=== PATIENT | female | born 1955 | race Caucasian/White ===

== ENCOUNTER 2017-09-17 21:37 | Emergency (ER) | payer OTHER ==
[~2017-09-17] VITALS: Ht 160 cm; Wt 58.1 kg
[~2017-09-17 21:37] MED LIST: B COMPLEX PO; MULTI VITAMIN PO; Z.0.ACIPHEX20 MG PO; Z.0.ADDERALL XR 3030 PO; Z.0.ALAGESIC CAPSU1 PO; Z.0.SYNTHROID125 MCG PO; Z.1.DIOVAN HCT 3201 PO; Z.1.FLUOXETINE HCL20 PO
[2017-09-17] MEDS ORDERED: KETOROLAC TROMETHAMINE 30 MG/ML VIAL IV ONE (22:00)
[2017-09-17] MEDS ORDERED: SODIUM CHLORIDE 0.9% 1000ML 1,000 ML ONE (22:15)
[2017-09-17] MEDS ORDERED: PROMETHAZINE HCL (IM) 25 MG/ML VIAL IM ONE (22:15)
[2017-09-17] MEDS ORDERED: KETOROLAC TROMETHAMINE 30 MG/ML VIAL IV STA (23:10)
[2017-09-18] MEDS ORDERED: DIPHENHYDRAMINE HCL INJ 50 MG/ML VIAL IV ONE (00:15)
[2017-09-18] MEDS ORDERED: MORPHINE SULFATE 5 MG/ML VIAL IV ONE (00:15)
[2017-09-18] MEDS ORDERED: KETOROLAC TROME10 MG PO (00:26)
[2017-09-18] MEDS ORDERED: ULTRAM50 MG PO (00:26)
[2017-09-18] MEDS ORDERED: PROMETHAZINE HC25 M1 PO (00:26)
[2017-09-18] MEDS ORDERED: FLOMAX0.4 MG PO (00:30)
[2017-09-18 00:43] VITALS: BP 120/70
== END 2017-09-18 01:53 | disposition home or self-care (01) ==
LOC: FSED 21:37
DX: R30.0 Dysuria (principal); R31.9 Hematuria, unspecified; R11.2 Nausea with vomiting, unspecified; M54.5 Low back pain; N20.1 Calculus of ureter; Z85.850 Personal history of malignant neoplasm of thyroid; K21.9 Gastro-esophageal reflux disease without esophagitis; F17.210 Nicotine dependence, cigarettes, uncomplicated
CPT/HCPCS: 74176; 80053; 80307; 81003; 85025; 96374; 96375; 99284; J2550; J7030

== ENCOUNTER → 2020-06-22 | Day surgery (SDC) | payer SELFPAY ==
[~2020-06-22] MED LIST changes: +ALBUTEROL0.63 MG/3 NEB; +BUPROPION XL150 MG PO; +CBD GUMMIES PO; +CLONAZEPAM1 MG PO; +ENDOMETRIN100 MG PO; +FENTANYL CITRATE/PF 100MCG/2 ML INJ ONE; +FLOMAX0.4 MG PO; +KETOROLAC TROME10 MG PO; +MELATONIN PO; +MIDAZOLAM HCL 2 MG/2 ML VIAL ONE; +OR PHACO EYE KIT ONE; +PREOP PHACO EYE KIT ONE; +PROMETHAZINE HC25 M1 PO; +ULTRAM50 MG PO; +VALACYCLOVIR500 MG PO; +WOMEN PO
[2020-06-22 14:20] VITALS: BP 113/79
== END | disposition home or self-care (01) ==
LOC: OR 11:48
PROVIDERS: ATTEND Ophthalmology
DX: H25.13 Age-related nuclear cataract, bilateral (principal); E03.9 Hypothyroidism, unspecified; F41.9 Anxiety disorder, unspecified; F98.8 Other specified behavioral and emotional disorders with onset usually occurring in childhood and adolescence; J40 Bronchitis, not specified as acute or chronic; K21.9 Gastro-esophageal reflux disease without esophagitis; Z01.812 Encounter for preprocedural laboratory examination; Z20.822 Contact with and (suspected) exposure to COVID-19
CPT/HCPCS: 66984; J2250; J3010; U0002

== ENCOUNTER → 2020-07-06 | Day surgery (SDC) | payer OTHER ==
[~2020-07-06] MED LIST changes: -FENTANYL CITRATE/PF 100MCG/2 ML INJ ONE; -MIDAZOLAM HCL 2 MG/2 ML VIAL ONE
[2020-07-06 14:45] VITALS: BP 125/82
== END | disposition home or self-care (01) ==
LOC: OR 12:38
PROVIDERS: ATTEND Ophthalmology
DX: H25.11 Age-related nuclear cataract, right eye (principal); J44.9 Chronic obstructive pulmonary disease, unspecified; Z01.812 Encounter for preprocedural laboratory examination; Z20.822 Contact with and (suspected) exposure to COVID-19
CPT/HCPCS: 66984; U0002; V2632